=== PATIENT | female | born 1990 | race American Indian/Alaskan Native ===

== ENCOUNTER 2016-06-06 20:48 | Inpatient (IN) | payer MEDICAID ==
[2016-06-06] MEDS ORDERED: LACTATED RINGERS 1,000 ML ONE (21:59)
[2016-06-06] MEDS ORDERED: LACTATED RINGERS 1,000 ML IV ONE (22:14)
[2016-06-06] MEDS ORDERED: LACTATED RINGERS 500 ML IV ONE (22:21)
[2016-06-06 23:00] LABS: Bilirubin,Urine NEG (Negative); Blood,Urine NEG (Negative); Ketones,Urine NEG (Negative); Leukocyte Esterase,Urine NEG (Negative); Nitrite,Urine NEG (Negative); Protein,Urine <15 mg/dL mg/dL (Negative); Urobilinogen,Urine < 2.0 mg/dL (<2.0); WBC,Urine < 1.0 /HPF (0.0-6.0)
[2016-06-06] MEDS ORDERED: MAGNESIUM SULFATE 40GM/1000ML 40 GM/1,000 ML BAG IV SCH (23:45)
[2016-06-06] MEDS ORDERED: ZOFRAN IV PRN (23:47)
[2016-06-06] MEDS ORDERED: BRETHINE SUB-Q PRN (23:47)
[2016-06-06] MEDS ORDERED: BRETHINE IVP PRN (23:47)
[2016-06-06] MEDS ORDERED: ePHEDrine SULFATE IV PRN (23:47)
[2016-06-06] MEDS ORDERED: XYLOCAINE 2% INFILTRATI ONE (23:47)
[2016-06-06] MEDS ORDERED: MINERAL OIL PO PRN (23:47)
[2016-06-06] MEDS ORDERED: MAGNESIUM SULFATE 4GM/100ML 4 GM/100 ML BAG IV ONE (23:51)
[2016-06-07 00:39] LABS: Hemoglobin 11.2 gm/dl (10.1-14.3); Mean Corpuscular HGB Conc 34 % (30-34); Mean Corpuscular Hemoglobin 31 pg (28-32); Mean Corpuscular Volume 93 fl (79-97); Platelet Count 236 K/mm3 (140-440); Red Blood Count 3.56 M/mm3 (3.65-5.03); Red Cell Distribution Width 12.8 % (13.2-15.2); White Blood Count 9.5 K/mm3 (4.5-11.0)
[2016-06-07] MEDS: LACTATED RINGERS 1,000 ML IV SCH ×2 (00:56→09:40)
[2016-06-07 02:20] LABS: HIV-1 Antigen p24 Non React (Non React); HIVR-1/2 Ab Non React (Non React)
--- NOTE | 2016-06-07 02:53 | Consultation ---
History of Present Illness - Reason for Consult Consult date: 06/07/16 labor at 23 weeks gestation Requesting physician: TITI TODD - History of Present Illness 26 year old mother presenting with contractions now 9cm dilated with bulging membranes at 23 weeks + 3 days twin gestation. Dating ultrasound was in the first trimester and mother was receiving progesterone for history of delivery at 24 weeks and shortened cervical length per report. She is currently on MgSO4 for tocolysis. I spoke with mother regarding chances of survival without significant morbidity at 23 weeks. I explained that without the benefit of steroids and controlled conditions for delivery, chances of survival without significant morbidity was unlikely and therefore will not recommend aggressive resuscitation such as chest compressions and IV medications. I presented the option of comfort care versus a trial of intubation if babies were vigorous at delivery. Though mother was tearful, she demonstrated understanding of the information presented and opted for trial of intubation if babies were vigorous at delivery. Medications and Allergies Allergies Allergy/AdvReac Type Severity Reaction Status Date / Time No Known Allergies Allergy Unverified 09/19/13 23:37 Home Medications Medication Instructions Recorded Confirmed Last Taken Type HYDROcodone/ACETAMINOPHEN [[place] 1 each PO Q6HR #20 tablet 09/20/13 Unknown Rx 5/325 Tablet] Ibuprofen [Motrin] 600 mg PO Q8H PRN #50 tablet 09/20/13 Unknown Rx Active Meds: Active Medications Butorphanol Tartrate (Stadol) 2 mg IV Q2H PRN PRN Reason: Pain , Severe (7-10) Lactated Ringer's (Lactated Ringers) 1,000 mls @ 125 mls/hr IV DIRECT SAVANNA Last Admin: 06/07/16 00:56 Dose: 125 mls/hr Magnesium Sulfate (Magnesium Sulfate 40gm/1000ml) 40 gm in 1,000 mls @ 50 mls/ hr IV DIRECT SAVANNA PRN Reason: 2 GM/HR Last Admin: 06/07/16 01:29 Dose: 2 gm/hr, 50 mls/hr Mineral Oil (Mineral Oil) 30 ml PO QHS PRN PRN Reason: Constipation Ondansetron HCl (Zofran) 4 mg IV Q8H PRN PRN Reason: Nausea And Vomiting Exam - Constitutional Vitals: Temp Pulse Resp BP Pulse Ox 100.1 F H 114 H 18 120/55 93 06/06/16 21:47 06/07/16 02:27 06/06/16 21:47 06/07/16 01:34 06/07/16 02:27 Results - Labs CBC & Chem 7: 06/06/16 23:47 Labs: Abnormal lab results 06/06/16 06/06/16 Range/Units 22:20 23:47 RBC 3.56 L (3.65-5.03) M/mm3 RDW 12.8 L (13.2-15.2) % Ur Specific [place] 1.002 L (1.003-1.030) Assessment and Plan Will attend delivery Call NICU with questions
[2016-06-07] MEDS: STADOL IV PRN ×2 (03:38→06:46)
--- NOTE | 2016-06-07 07:20 | Admit Criteria Form ---
Admission Criteria Documentation: LABOR, THREATENED Clinical Indications for Admission to Inpatient Care (Place 'X' for any and all applicable criteria): Admission is indicated for ANY ONE of the following 1,2,3: [ ]I. Chorioamnionitis [ ]II. Significant vaginal bleeding or any vaginal bleeding with known placental previa or vasa previa 5,8 [ ]III. Serious maternal, infection or comorbidity (eg, pyelonephritis, pneumonia) as cause [ ]IV. Delivery [ ]V. distress or demise [ ]. labor and positive fibronectin(fFN) assay (9) [ ]VII. Condition requiring premature delivery (eg, premature rupture of membranes) 4,5 [X]VIII. Inpatient admission required rather than observation care (Also use Labor, Threatened: Observation Care Criteria as appropriate) because of ANY ONE of the following: [X]a) Continued monitoring that requires inpatient care [X]b) Tocolytic therapy needed that requires inpatient care [ ]c) Complications of tocolytic treatment (eg, pulmonary edema, hypotension) that are severe or persistent (9) Extended stay beyond goal length of stay may be needed for (1)(2) [ ]a) Significant infection (eg, chorioamnionitis)(29) [ ]b) Continued uterine contractions [ ]c) demise [ ]d) Continued vaginal bleeding or placental abnormality [ ]e) Complications of tocolytic treatment (eg, pulmonary edema, hypotension)( 15) [ ]f) Multiple gestation(33) [ ]g) Other condition (eg, severe maternal disease, premature delivery) requiring continued inpatient care The original [employer] [facility] [employer] content created by [employer] has been revised. The portions of the content which have been revised are identified through the use of italic text or in bold, and [facility] has neither reviewed nor approved the modified material. All other unmodified content is copyright [facility] [employer]. Please see references footnoted in the original [facility] [employer] edition 2016 Admission Criteria Met: Yes
--- NOTE | 2016-06-07 08:08 | Ultrasound Report ---
OB ULTRASOUND FOLLOWUP ULTRASOUND OB FOLLOWUP ADD GESTATION History: Twin gestation, labor. Comparison: None at this facility. Technique: Transabdominal ultrasound with Doppler interrogation. TWIN A Gestation: Twin Position: Cephalic Amniotic Fluid: Normal SUNDAR = 4.4 cm largest vertical pocket Placenta: Anterior Placental Grade: 1 Heart Rate: 160 BPM Cervical length: 0.0 cm (Normal > 3 cm) BPD: 5.7 cm = 23 w 3 d HC: 21.0 cm = 23 w 0 d AC: 18.1 cm = 23 w 0 d FL: 4.1 cm = 23 w 2 d HC/AC Ratio: 1.16 Estimated Weight: 589 grams LMP: Uncertain Clinical age = w d EDC: US Gest. Age = 23 w 1 d EDC: 10/03/16 TWIN B Gestation: Twin Position: Transverse, head to maternal left Amniotic Fluid: 3.7 cm largest vertical pocket Placenta: Posterior Placental Grade: 1 Heart Rate: 168 BPM Cervical length: 0.0 cm (Normal > 3 cm) BPD: 5.5 cm = 22 w 6 d HC: 20.8 cm = 22 w 6 d AC: 18.4 cm = 23 w 1 d FL: 4.0 cm = 23 w 0 d HC/AC Ratio: 1.13 Estimated Weight: 582 grams LMP: Uncertain Clinical age = w d EDC: US Gest. Age = 23 w 0 d EDC: 10/04/16
--- NOTE | 2016-06-07 08:59 | History and Physical Report ---
History of Present Illness Date of examination: 06/07/16 Date of admission: 06/07/16 01:55 Chief complaint: I'm having contractions History of present illness: Pt is 26 year old A1 L3 who presents with advanced dilation with a twin IUP at 23.3 weeks. Patient has a history of delivery and was using vaginal progesterone throughout this . 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) Social history: single - Obstetrical History Expected Date of Delivery: 10/01/16 Actual Gestation: 23 Week(s) 3 Day(s) : 5 Para: 2 Number of Living Children: 3 Medications and Allergies Allergies Allergy/AdvReac Type Severity Reaction Status Date / Time No Known Allergies Allergy Unverified 09/19/13 23:37 Home Medications Medication Instructions Recorded Confirmed Last Taken Type HYDROcodone/ACETAMINOPHEN [[place] 1 each PO Q6HR #20 tablet 09/20/13 Unknown Rx 5/325 Tablet] Ibuprofen [Motrin] 600 mg PO Q8H PRN #50 tablet 09/20/13 Unknown Rx Active Meds: Active Medications Butorphanol Tartrate (Stadol) 2 mg IV Q2H PRN PRN Reason: Pain , Severe (7-10) Last Admin: 06/07/16 06:46 Dose: 2 mg Lactated Ringer's (Lactated Ringers) 1,000 mls @ 125 mls/hr IV DIRECT SAVANNA Last Admin: 06/07/16 00:56 Dose: 125 mls/hr Magnesium Sulfate (Magnesium Sulfate 40gm/1000ml) 40 gm in 1,000 mls @ 50 mls/ hr IV DIRECT SAVANNA PRN Reason: 2 GM/HR Last Admin: 06/07/16 01:29 Dose: 2 gm/hr, 50 mls/hr Mineral Oil (Mineral Oil) 30 ml PO QHS PRN PRN Reason: Constipation Ondansetron HCl (Zofran) 4 mg IV Q8H PRN PRN Reason: Nausea And Vomiting Review of Systems All systems: negative Genitourinary: contractions, other (vaginal pressure) - Vital Signs Vital signs: Vital Signs Pulse Pulse Ox 112 H 97 06/06/16 21:00 06/06/16 21:00 Temp Pulse Resp BP Pulse Ox 98.2 F 113 H 16 114/59 98 06/07/16 07:20 06/07/16 08:42 06/07/16 07:20 06/07/16 08:34 06/07/16 08:42 - Physical Exam Breasts: Cardiovascular: Regular rate, Normal S1, Normal S2 Lungs: Positive: Clear to auscultation, Normal air movement Abdomen: Positive: normal appearance, soft, normal bowel sounds. Negative: distention, tenderness Vulva: both: normal Vagina: Positive: normal moisture. Negative: discharge Cervix: Negative: lesion, discharge Uterus: Positive: normal size, normal contour Adnexa: both: normal Anus/Rectum: Positive: normal perianal skin, heme negative. Negative: rectal mass, hemorrhoids Extremities: Deep Tendon Reflex Grade: Normal +2 - Obstetrical FHR: auscultation normal Cervical Dilatation: 8 Cervical Effacement Percentage: 90 station: -2 Uterine Contraction Intensity: Moderate Results Result Diagrams: 06/06/16 23:47 Abnormal lab results 06/06/16 06/06/16 Range/Units 22:20 23:47 RBC 3.56 L (3.65-5.03) M/mm3 RDW 12.8 L (13.2-15.2) % Ur Specific [place] 1.002 L (1.003-1.030) All other labs normal. Assessment and Plan Patient presents at 23 + weeks with advanced dilation to 8cm and twin delivery. Will begin mag for neuroprotection. Patient is requesting transfer to [place] to be with her primary ob. Discussed case with patients primary ob who stated that he would not accept patient at 8cm. Will administer steroids and continue to monitor. Patient also advised that signing out against medical advice would be only option for transfer of care at this point.
[2016-06-07] MEDS ORDERED: CELESTONE SOLUSPAN IM SCH (10:00)
[2016-06-07] MEDS ORDERED: PITOCin/NS 20 UNIT/1000ML DRIP 20,000 MILLIUNITS/1,000 ML BAG IV ONE (19:10)
[2016-06-07] MEDS ORDERED: BICITRA ONE (19:10)
[2016-06-07] MEDS ORDERED: REGLAN ONE (19:10)
[2016-06-07] MEDS ORDERED: PEPCID IV ONE ×2 (19:11→20:17)
[2016-06-07] MEDS ORDERED: ANCEF/STERILE WATER 2 GM/20 ML 2 GM/20 ML SYRINGE IV ONE (19:11)
[2016-06-07] MEDS ORDERED: BICITRA PO ONE (19:17)
[2016-06-07] MEDS ORDERED: REGLAN IV SCH (19:17)
--- NOTE | 2016-06-07 19:21 | Event Note ---
Date: 06/07/16 patient called out to desk with complaint of vaginal bleeding. Cervical exam revealed complete dilation with nothing but head enclosed in membranes in vaginal canal with active bright red vaginal bleeding. Will now proceed with operative delivery of twins.
[2016-06-07] MEDS ORDERED: MORPHINE ONE (19:42)
[2016-06-07] MEDS ORDERED: WATER FOR IRRIG STERILE IR ONE (20:00)
[2016-06-07] MEDS ORDERED: ANCEF/STERILE WATER 2 GM/20 ML 2 GM/20 ML SYRINGE IV NR (20:00)
[2016-06-07] MEDS ORDERED: LACTATED RINGERS 1,000 ML IV SCH (20:00)
[2016-06-07] MEDS ORDERED: NACL 0.9% IR ONE (20:00)
[2016-06-07] MEDS ORDERED: PITOCin/NS 20 UNIT/1000ML DRIP 20 UNITS/1,000 ML BAG IV SCH ×2 (20:00→23:08)
[2016-06-07] MEDS ORDERED: NEO SYNEPHRINE ONE (20:23)
[2016-06-07] MEDS ORDERED: NACL 0.9% 100 ML ONE (20:23)
[2016-06-07] MEDS ORDERED: VERSED ONE (20:30)
[2016-06-07] MEDS ORDERED: LACTATED RINGERS 1,000 ML ONE (20:53)
[2016-06-07] MEDS ORDERED: SUBLIMAZE ONE (21:08)
--- NOTE | 2016-06-07 21:24 | Anesthesia Day of Surgery ---
Anesthesia Day of Surgery - Day of Surgery Patient Examined: Yes Patient H&P Reviewed: Yes Patient is NPO: No (FSP)
--- NOTE | 2016-06-07 21:24 | Anesthesia Consultation ---
Anesthesia Consult and Med Hx Date of service: 06/07/16 - Airway Anesthetic Teeth Evaluation: Good ROM Head & Neck: Adequate Mental/Hyoid Distance: Inadequate Intubation Access Assessment: Probably Good - Pulmonary Exam CTA: Yes - Cardiac Exam Cardiac Exam: RRR - Pre-Operative Health Status ASA Pre-Surgery Classification: ASA2, Emergency Proposed Anesthetic Plan: Spinal - Pulmonary Hx Asthma: No COPD: No Hx Pneumonia: No - Cardiovascular System Hx Hypertension: No - Central Nervous System Hx Seizures: No Hx Psychiatric Problems: No - Endocrine Hx Renal Disease: No Hx End Stage Renal Disease: No Hx Hypothyroidism: No Hx Hyperthyroidism: No - Hematic Hx Sickle Cell Disease: No - Other Systems Hx Alcohol Use: No
[2016-06-07] MEDS ORDERED: BENADRYL IV PRN (21:25)
[2016-06-07] MEDS ORDERED: DILAUDID IV PRN (21:25)
--- NOTE | 2016-06-07 21:25 | Post Anesthesia Evaluation ---
- Post Anesthesia Evaluation Patient Participated: Yes Airway Patent: Yes Stable Respiratory Function: Yes Temp > 96.8F: Yes Pain Manageable: Yes Adequeate Hydration: Yes Anesthesia Complications: No Block Receding Appropriately: Yes
[2016-06-07] MEDS ORDERED: NARCAN 0.4 MG/1 ML IV PRN ×2 (21:36→23:08)
--- NOTE | 2016-06-07 21:53 | Procedure Note ---
OB Delivery Note - Delivery Date of Delivery: 06/07/16 Surgeon: TITI TODD Estimated blood loss: other (750) - Section Preop diagnosis: other ( labor with twins, previous ) Postop diagnosis: same section procedure: repeat low transverse Disposition: PACU Complications: none Narrative: see op report: Urine 150 IVF 2200 Time of delivery - Infant A at 1 minute: 1 at 5 minutes: 7 Gender: Male (570 grams 1 pound 4 ounces) B at 1 minute: 2 at 5 minutes: 7 Infant Gender: Female (Weight 540 grams (1pound 2 ounces))
[2016-06-07] MEDS ORDERED: TORADOL IV PRN (23:08)
[2016-06-07] MEDS ORDERED: MYLICON PO PRN (23:08)
[2016-06-07] MEDS ORDERED: MORPHINE IV PRN (23:08)
[2016-06-07] MEDS ORDERED: LANSINOH TP PRN (23:08)
[2016-06-07] MEDS ORDERED: SODIUM CHLORIDE FLUSH SYRINGE 10 ML IV NR (23:08)
[2016-06-07] MEDS ORDERED: TUCKS PAD TP PRN (23:08)
[2016-06-07] MEDS ORDERED: MILK OF MAGNESIA PO PRN (23:08)
[2016-06-08] MEDS ORDERED: M-M-R II VACCINE SUB-Q ONE (06:00)
[2016-06-08] MEDS ORDERED: BOOSTRIX IM ONE (06:00)
[2016-06-08] MEDS: BENADRYL PO PRN ×3 (06:32→18:30)
[2016-06-08] MEDS ORDERED: D5LR 1,000 ML IV ONE (08:19)
[2016-06-08 09:37] LABS: Hematocrit 27.6 % (30.3-42.9); Hemoglobin 9.5 gm/dl (10.1-14.3)
[2016-06-08] MEDS ORDERED: PRENATAL VITAMIN PO SCH (10:00)
[2016-06-08] MEDS: PERCOCET 5/325 PO PRN ×2 (12:29→18:00)
--- NOTE | 2016-06-08 15:53 | Progress Note ---
Subjective Date of service: 06/08/16 Interval history: 1st POD after Patient is in the bed, comfortable. Pain is well controlled with pain meds. Ambulated well. Pruritus is mostly under control with benadryl. No residual neurological deficit. No anesthesia complications Objective - Constitutional Vitals: Vital Signs - 12hr 06/08/16 06/08/16 06/08/16 05:00 08:15 12:29 Temperature 98.7 F 98.3 F Pulse Rate [ 86 90 From Monitor] Respiratory 20 16 20 Rate Blood Pressure 122/66 117/71 [Left Arm] - Labs CBC & Chem 7: 06/08/16 09:22 Labs: Abnormal lab results 06/08/16 Range/Units 09:22 Hgb 9.5 L (10.1-14.3) gm/dl Hct 27.6 L (30.3-42.9) %
[2016-06-08] MEDS: MOTRIN PO PRN (18:00)
[2016-06-09] MEDS: PERCOCET 5/325 PO PRN ×4 (00:12→18:50)
[2016-06-09] MEDS: BENADRYL PO PRN (00:13)
--- NOTE | 2016-06-09 06:49 | Progress Note ---
Assessment and Plan POD 2 s/p rltcs at 23 weeks for labor and twins. Patient doing well and planning for discharge on tomorrow. Subjective - Subjective Date of service: 06/09/16 Interval history: Pt is 26 year old A1 L3 who presents with advanced dilation with a twin IUP at 23.3 weeks. Patient has a history of delivery and was using vaginal progesterone throughout this . Patient reports: appetite normal, voiding normally, pain well controlled, flatus , ambulating normally [place]: in NICU Objective - Vital Signs Latest vital signs: Vital Signs Temp Pulse Resp BP 06/08/16 23:00 98.7 F 89 20 125/69 06/08/16 21:08 98.5 F 06/08/16 18:47 99.5 F 06/08/16 18:00 20 06/08/16 16:15 100.7 F H 103 H 20 132/79 06/08/16 12:29 20 06/08/16 08:15 98.3 F 90 16 117/71 Intake and Output 06/08/16 06/08/16 06/09/16 14:59 22:59 06:59 Intake Total 600 480 Output Total 1100 400 Balance -500 80 Intake: Oral 600 480 Output: Urine 1100 400 Indwelling Catheter 500 Void 600 400 Other: Total, Intake Amount 240 360 Total, Output Amount 600 400 Voiding Method Toilet Toilet # Voids Void 2 1 - Exam Cardiovascular: Present: Regular rate, Normal S1, Normal S2 Lungs: Present: Clear to auscultation, Normal air movement Abdomen: Present: normal appearance, soft Extremities: Present: normal Deep Tendon Reflex Grade: Normal +2 Incision: Present: normal, dry, intact - Labs Labs: Abnormal lab results 06/08/16 Range/Units 09:22 Hgb 9.5 L (10.1-14.3) gm/dl Hct 27.6 L (30.3-42.9) %
[2016-06-09] MEDS: MOTRIN PO PRN ×3 (08:33→23:33)
[2016-06-10] MEDS: PERCOCET 5/325 PO PRN (08:09)
--- NOTE | 2016-06-10 10:01 | Progress Note ---
Assessment and Plan POD 3 s/p rltcs for labor. Doing well. Plan for discharge on today Subjective - Subjective Date of service: 06/10/16 Interval history: Pt is 26 year old A1 L3 who presents with advanced dilation with a twin IUP at 23.3 weeks. Patient has a history of delivery and was using vaginal progesterone throughout this . Patient reports: appetite normal, voiding normally, pain well controlled, ambulating normally [place]: in NICU Objective - Vital Signs Latest vital signs: Vital Signs Temp Pulse Resp BP 06/10/16 08:09 18 06/10/16 00:20 98.6 F 88 18 126/70 06/09/16 16:13 98.5 F 76 18 138/87 Intake and Output 06/09/16 06/10/16 06/10/16 22:59 06:59 14:59 Intake Total 600 240 240 Output Total 1 Balance 600 239 240 Intake: Oral 240 240 Intake, Free Water 360 240 Output: Stool 1 Other: Total, Intake Amount 240 240 Total, Output Amount 1 # Voids Void 2 1 1 # Bowel Movements 1 - Exam Cardiovascular: Present: Regular rate Lungs: Present: Clear to auscultation Abdomen: Present: normal appearance, soft Extremities: Present: normal Incision: Present: normal, dry, intact
--- NOTE | 2016-06-10 10:08 | Discharge Summary ---
Providers - Providers Date of Admission: 06/07/16 13:27 Date of discharge: 06/10/16 Attending physician: TITI TODD Primary care physician: TITI TODD Hospitalization Reason for admission: IUP - , section Delivery: Procedure: repeat low transverse Incision: normal, dry, intact Discharge diagnosis: delivery baby: twins Condition at discharge: Good Disposition: DISCHARGED TO HOME OR SELFCARE Plan - Discharge Medications Prescriptions: Docusate Sodium [Colace] 100 mg PO BID #60 capsule Ferrous Sulfate [Feosol 325 MG tab] 325 mg PO BID #60 tablet Ibuprofen [Motrin] 800 mg PO Q8HR PRN #50 tablet PRN Reason: Pain oxyCODONE /ACETAMINOPHEN [Percocet 5/325] 2 tab PO Q6HR PRN #60 tablet PRN Reason: Pain - Provider Discharge Summary Activity: routine, no sex for 6 weeks, no heavy lifting 4 weeks, no strenuous exercise Diet: routine Instructions: routine Additional instructions: [] Smoking cessation referral if applicable(refer to patient education folder for contact #) [] Refer to [facility] Booklet Call your doctor immediately for: * Fever > 100.5 * Heavy vaginal bleeding ( >1 pad per hour) * Severe persistent headache * Shortness of breath * Reddened, hot, painful area to leg or breast * Drainage or odor from incision. * Keep incision clean and dry at all times and follow doctor's instructions regarding bathing/showering - Follow up plan Follow up: TITI TODD MD [Primary Care Provider] - 7 Days
[2016-06-10 11:39] VITALS: BP 142/80
== END 2016-06-10 13:45 | disposition home or self-care (01) | DRG 765 ==
LOC: TRG 20:48 → LD 06-07 01:55 → OBSVTOIN 06-07 13:27 → OB 06-07 22:53
PROVIDERS: ADMIT Obstetrics & Gynecology; ATTEND Obstetrics & Gynecology
PROC: 10D00Z1 Extraction of Products of Conception, Low, Open Approach (ICD-10-PCS; principal; 2016-06-07)
DX: O60.12X0 Preterm labor second trimester with preterm delivery second trimester, not applicable or unspecified (principal); O30.002 Twin pregnancy, unspecified number of placenta and unspecified number of amniotic sacs, second trimester; O34.211 Maternal care for low transverse scar from previous cesarean delivery; Z3A.23 23 weeks gestation of pregnancy; Z37.2 Twins, both liveborn
CPT/HCPCS: 36415; 76816; 81001; 83735; 85014; 85018; 85027; 86592; 86706; 86762; 86850; 86900; 86901; 87806; 88305; C9250; J0595; J0690; J0702; J1170; J1885; J2250; J2270; J2370; J2590; J2765; J3010; J3475; J7120; J7121

== ENCOUNTER 2017-06-25 14:56 | Emergency (ER) | payer MEDICAID ==
[2017-06-25 15:18] VITALS: BP 129/84
[2017-06-25 16:44] LABS: Bacteria,Urine 1+ /HPF (Negative); Bilirubin,Urine NEG (Negative); Blood,Urine NEG (Negative); Color,Urine Yellow (Yellow); HCG Qualitative,Urine Positive (Negative); Mucus,Urine FEW /HPF; Protein,Urine <15 mg/dL mg/dL (Negative)
== END 2017-06-25 21:00 | disposition left against medical advice (07) ==
LOC: ED 14:56
DX: O26.891 Other specified pregnancy related conditions, first trimester (principal); R10.9 Unspecified abdominal pain; Z53.21 Procedure and treatment not carried out due to patient leaving prior to being seen by health care provider
CPT/HCPCS: 81001; 81025

== ENCOUNTER 2020-12-17 14:12 | Emergency (ER) | payer MEDICAID ==
--- NOTE | 2020-12-17 14:44 | Emergency Department Report ---
ED General Adult HPI - General Chief complaint: Weakness Stated complaint: POSS CVA Time Seen by Provider: 12/17/20 14:19 Source: patient, EMS Mode of arrival: Stretcher Limitations: No Limitations - History of Present Illness Initial comments: Patient is 30 years old female with no significant past medical history. Patient brought to the emergency room initially as possible code stroke. EMS reported that patient was watching TV and all of a sudden started to have a left upper extremity weakness. EMS stated that patient [place] stroke scale is negative. Upon arrival to the ER, I greeted the patient the door to the ER on EMS stretcher. Patient is communicating well with no difficulty. Patient has no arm or leg drift. No facial droop. Stroke scale is 0. Code stroke consult. Patient moved herself from the EMS stretcher to the ER stretcher with no difficulties. Patient is very anxious. - Related Data Previous Rx's Medication Instructions Recorded Last Taken Type Docusate Sodium [Colace] 100 mg PO BID #60 capsule 06/09/16 Unknown Rx Ferrous Sulfate [Feosol 325 MG tab] 325 mg PO BID #60 tablet 06/09/16 Unknown Rx Ibuprofen [Motrin] 800 mg PO Q8HR PRN #50 tablet 06/09/16 Unknown Rx oxyCODONE /ACETAMINOPHEN [Percocet 2 tab PO Q6HR PRN #60 tablet 06/09/16 Unknown Rx 5/325] Allergies Allergy/AdvReac Type Severity Reaction Status Date / Time No Known Allergies Allergy Verified 12/17/20 14:17 ED Review of Systems ROS: Stated complaint: POSS CVA Other details as noted in HPI Comment: All other systems reviewed and negative Constitutional: denies: chills, fever Respiratory: denies: cough, shortness of breath, SOB with exertion, SOB at rest Cardiovascular: denies: chest pain, palpitations Gastrointestinal: denies: abdominal pain, nausea, vomiting Neurological: weakness. denies: headache, numbness, paresthesias, confusion, abnormal gait Psychiatric: anxiety ED Past Medical Hx - Past Medical History Previous Medical History?: No Hx Hypertension: No Hx Congestive Heart Failure: No Hx Diabetes: No Hx Deep Vein Thrombosis: No Hx Renal Disease: No Hx Sickle Cell Disease: No Hx Seizures: No Hx Asthma: No Hx COPD: No Hx HIV: No - Surgical History Past Surgical History?: No - Social History Smoking Status: Never Smoker Substance Use Type: Alcohol - Medications Home Medications: Home Medications Medication Instructions Recorded Confirmed Last Taken Type Docusate Sodium [Colace] 100 mg PO BID #60 capsule 06/09/16 Unknown Rx Ferrous Sulfate [Feosol 325 MG tab] 325 mg PO BID #60 tablet 06/09/16 Unknown Rx Ibuprofen [Motrin] 800 mg PO Q8HR PRN #50 tablet 06/09/16 Unknown Rx oxyCODONE /ACETAMINOPHEN [Percocet 2 tab PO Q6HR PRN #60 tablet 06/09/16 Unknown Rx 5/325] ED Physical Exam - General Limitations: No Limitations General appearance: alert, in no apparent distress, anxious - Head Head exam: Present: atraumatic, normocephalic, normal inspection - Eye Eye exam: Present: normal appearance - ENT ENT exam: Present: normal exam, normal orophraynx, mucous membranes moist - Neck Neck exam: Present: normal inspection, full ROM. Absent: tenderness, meningismus - Respiratory Respiratory exam: Present: normal lung sounds bilaterally - Cardiovascular Cardiovascular Exam: Present: regular rate, normal rhythm, normal heart sounds - GI/Abdominal GI/Abdominal exam: Present: soft, normal bowel sounds. Absent: distended, tenderness, guarding, rebound, rigid, organomegaly, mass, bruit, pulsatile mass, hernia - Extremities Exam Extremities exam: Present: normal inspection, full ROM, normal capillary refill. Absent: tenderness - Back Exam Back exam: Present: normal inspection, full ROM. Absent: CVA tenderness (R), CVA tenderness (L) - Neurological Exam Neurological exam: Present: alert, oriented X3, CN II-XII intact, normal gait, reflexes normal. Absent: motor sensory deficit - Psychiatric Psychiatric exam: Present: normal mood, anxious - Skin Skin exam: Present: warm, intact, normal color ED Course Vital Signs 12/17/20 12/17/20 14:22 16:44 Temperature 98 F Pulse Rate 90 77 Respiratory 16 16 Rate Blood Pressure 149/98 137/80 [Left] O2 Sat by Pulse 95 100 Oximetry ED Medical Decision Making - Lab Data Result diagrams: 12/17/20 14:40 12/17/20 14:40 - EKG Data -: EKG Interpreted by Tn EKG shows normal: sinus rhythm Rate: normal - EKG Data Interpretation: no acute changes - Medical Decision Making Patient is 30 years old female with no significant past medical history. Patient brought to the emergency room initially as possible code stroke. EMS reported that patient was watching TV and all of a sudden started to have a left upper extremity weakness. EMS stated that patient [place] stroke scale is negative. Upon arrival to the ER, I greeted the patient the door to the ER on EMS stretcher. Patient is communicating well with no difficulty. Patient has no arm or leg drift. No facial droop. Stroke scale is 0. Code stroke consult. Patient moved herself from the EMS stretcher to the ER stretcher with no difficulties. Patient is very anxious. Patient remained stable in the ER. Patient family ambulated to the bathroom with no difficulties. Labs reviewed and is unremarkable except for slightly elevated CK. Patient stated that she is completely back to normal. Patient strongly advised to follow-up with her primary care physician in the next 2 to 3 days and to return to the ER if she develop any new symptoms. Critical care attestation.: If time is entered above; I have spent that time in minutes in the direct care of this critically ill patient, excluding procedure time. ED Disposition Clinical Impression: Weakness Disposition: 01 HOME / SELF CARE / HOMELESS Is pt being admited?: No Condition: Stable Instructions: Weakness, [id number] Referrals: PRIMARY CARE, [Primary Care Provider] - 3-5 Days
[2020-12-17 14:53] LABS: Basophils % (Auto) 0.8 % (0.0-1.8); Eosinophils % (Auto) 0.2 % (0.0-4.3); Hematocrit 39.2 % (30.3-42.9); Hemoglobin 13.1 gm/dl (10.1-14.3); Lymphocytes # (Auto) 1.4 K/mm3 (1.2-5.4); Mean Corpuscular HGB Conc 33 % (30-34); Mean Corpuscular Volume 93 fl (79-97); Monocytes # (Auto) 0.4 K/mm3 (0.0-0.8); Monocytes % (Auto) 7.6 % (0.0-7.3); Platelet Count 292 K/mm3 (140-440); Red Blood Count 4.21 M/mm3 (3.65-5.03); Red Cell Distribution Width 14.2 % (13.2-15.2)
[2020-12-17 15:13] LABS: Blood Urea Nitrogen 9 mg/dL (7-17); Calcium 9.4 mg/dL (8.4-10.2); Hemolysis Index 5
[2020-12-17 15:17] LABS: BUN/Creatinine Ratio 13
[2020-12-17 16:46] VITALS: BP 137/80
[2020-12-17 16:57] LABS: Bilirubin,Urine NEG (Negative); Blood,Urine NEG (Negative); Color,Urine Yellow (Yellow); Mucus,Urine FEW /HPF; Protein,Urine <15 mg/dL mg/dL (Negative); Urobilinogen,Urine < 2.0 mg/dL (<2.0)
[2020-12-17 17:05] LABS: WBC,Urine < 1.0 /HPF (0.0-6.0)
[2020-12-17 17:06] LABS: Amphetamine Screen,Urine Negative; Benzodiazepines Screen,Urine Negative; Cannabinoid Screen,Urine Negative; Cocaine Screen,Urine Negative; Methadone Screen,Urine Negative; Opiate Screen,Urine Negative
[2020-12-17] MEDS ORDERED: SODIUM CHLORIDE 0.9% 1000 ML 1,000 ML IV ONE (17:16)
--- NOTE | 2020-12-18 11:53 | Electrocardiograph Report ---
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
== END 2020-12-17 18:53 | disposition home or self-care (01) ==
LOC: ED 14:12
DX: R53.1 Weakness (principal); Z72.89 Other problems related to lifestyle; Z79.899 Other long term (current) drug therapy
CPT/HCPCS: 36415; 80048; 80307; 81001; 82550; 84703; 85025; 93005; 96360; 99284; J7030